=== PATIENT | female | born 1960 | race Caucasian/White ===

== ENCOUNTER 2016-06-12 18:33 | Emergency (ER) | payer OTHER ==
[~2016-06-12] VITALS: Ht 165.1 cm; Wt 90.7 kg
[~2016-06-12 18:33] MED LIST: NORCO 325 MG-51 TAB PO
--- NOTE | 2016-06-12 20:39 | ULTRASOUND REPORT ---
EXAMINATION: US TRIPLEX LOWER EXTREMITY, RIGHT CLINICAL INFORMATION: Right lower extremity veins. COMPARISON: None. TECHNIQUE: Color-flow triplex imaging with spectral analysis and compression Doppler were performed on the right lower extremity. FINDINGS: Respiratory variation, normal compression and augmented flow are noted throughout the lower extremity. The visualized common femoral vein, femoral vein, profunda femoral vein, popliteal vein and midcalf peroneal and posterior tibial venous segments show no evidence of deep venous thrombosis. There is no Arreola's cyst. IMPRESSION: Normal triplex scan without evidence of deep venous thrombosis involving the right lower extremity.
--- NOTE | 2016-06-12 20:52 | ED UPPER/LOWER EXTREMITY COMPL ---
History of Present Illness General Chief Complaint: Lower Extremity Problems Stated Complaint: R LEG PAIN AND SWELLING HX OF DVT Source: patient Exam Limitations: no limitations Vital Signs & Intake/Output Vital Signs & Intake/Output Vital Signs Date Time Temp Pulse Resp B/P Pulse O2 O2 Flow FiO2 Ox Delivery Rate 06/123 98.4 70 15 158/88 98 Room Air Room Air 06/12 1907 166/110 06/12 1905 97.1 77 20 183/123 97 Room Air ED Intake and Output 06/13 0000 06/12 1200 Intake Total 0 Output Total Balance 0 Intake, Oral 0 Patient 200 lb Weight Allergies Coded Allergies: Penicillins (RASH ALL OVER, EVEN INSIDE MOUTH 06/12/16) Reconcile Medications Aspirin (Aspirin*) 325 MG TABLET 1-4 TAB PO PRN BLOOD CLOT CONCERN (Reported) Meloxicam (Mobic) 15 MG TABLET 1 TAB PO DAILY PRN PAIN/INFLAMMATION Triage Note: RECEIVED 56 YO FEMALE C/O RIGHT INNER THIGH AREA PAIN X 2 WEEKS. PT REPORTS CHRONIC RIGHT THIGH SWELLING. PT REPORTS SHARP SHOOTING RIGHT LEG PAIN AND PAIN BEHIND RIGHT THIGH. Triage Nurses Notes Reviewed? yes HPI: Patient is a 56-year-old female presents complaining of right lower extremity pain and swelling. Patient reports that her right lower extremity swells chronically. For the past 2 weeks she has had increased pain in her right thigh. Pain varies between the right medial distal thigh and right medial mid thigh. Pain is a sharp pain is currently mild, has been severe at times. Patient has a history of DVT and is concerned that she developed a blood clot. Patient called her tool liaison office today and was referred to the emergency department for further evaluation. Patient has appointment with her vascular doctor on June 28. Patient denies fevers, trauma, decreased range of motion, weakness (MARTHA DOVE) Past History Travel History Traveled to [place] past 21 day No Medical History Any Pertinent Medical History? 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 No (MARTHA DOVE) Review of Systems Review of Systems Constitutional: Denies: chills, fever. EENTM: Reports: no symptoms. Respiratory: Denies: short of breath. Cardiovascular: Denies: chest pain. Gastrointestinal/Abdominal: Reports: no symptoms. Musculoskeletal: Reports: see HPI. Skin: Reports: no symptoms. Neurological/Psychological: Reports: no symptoms. Hematologic/Endocrine: Reports: no symptoms. Immunological: Reports: no symptoms. (MARTHA DOVE) Physical Exam Physical Exam General Appearance: well developed/nourished, alert, awake Head: atraumatic, normal appearance Eyes: Bilateral: normal appearance, PERRL, EOMI. Ears, Nose, Throat: normal pharynx, normal ENT inspection, hearing grossly normal Neck: normal inspection, supple, full range of motion Cardiovascular/Respiratory: normal breath sounds, normal peripheral pulses, regular rate/rhythm, no respiratory distress Peripheral Pulses: 2+ femoral (L), 2+ dorsalis pedis (R) Back: normal inspection, normal range of motion Leg Right: varicose veins to right thigh. Mild tenderness right medial thigh. No erythema, fluctuance or induration Knee Right: normal range of motion, normal inspection Foot Right: normal inspection, normal range of motion Neurologic/Tendon: normal sensation, normal motor functions, normal tendon functions Skin: intact, normal color, warm/dry (MARTHA DOVE) Progress Differential Diagnosis: arterial insufficiency, cellulitis, compartment syndrome , DVT, venous insufficiency, lymphedema Plan of Care: Results of ultrasound discussed with patient and her . Appears stable for follow up with her primary care provider in 10 days, and her vascular specialist on 06/28/16 Diagnostic Imaging: Viewed by Me: Ultrasound. Discussed w/RAD: Ultrasound. Radiology Impression: PATIENT: JC WOMACK PRESENT AGE: 56 PATIENT ACCOUNT NO: [id number] : 61 LOCATION: [facility] ORDERING PHYSICIAN: MARTHA MULLIGAN SERVICE DATE: 06/12/16 EXAM TYPE: US - US-UNILATERAL VENOUS DOPPLER EXAMINATION: US TRIPLEX LOWER EXTREMITY, RIGHT CLINICAL INFORMATION: Right lower extremity veins. COMPARISON: None. TECHNIQUE: Color-flow triplex imaging with spectral analysis and compression Doppler were performed on the right lower extremity. FINDINGS: Respiratory variation, normal compression and augmented flow are noted throughout the lower extremity. The visualized common femoral vein, femoral vein, profunda femoral vein, popliteal vein and midcalf peroneal and posterior tibial venous segments show no evidence of deep venous thrombosis. There is no Arreola's cyst. IMPRESSION : Normal triplex scan without evidence of deep venous thrombosis involving the right lower extremity. DICTATED BY: JACK BOO MD DATE/TIME DICTATED:2034 CAR DESIGNER:MIMI DATE/TIME TRANSCRIBED:06/12/162034 CONFIDENTIAL, DO NOT COPY WITHOUT APPROPRIATE AUTHORIZATION. <Electronically signed in Other Vendor System> SIGNED BY: JACK BOO MD 06/12/162038 (MARTHA DOVE) Departure Departure Time of Disposition: 2120 Disposition: HOME OR SELF CARE Condition: Stable Clinical Impression Primary Impression: Edema of right lower extremity Secondary Impressions: Pain of right lower extremity Referrals: ALISON FITZGERALD,DAYTON Torres (PCP/Family) Additional Instructions: Follow-up with your primary care provider on June 22 and your vascular doctor on June 28 as scheduled. Return to the emergency department if fevers, numbness, weakness, or worsening of symptoms. Departure Forms: Customer Survey General Discharge Information Prescriptions: Current Visit Scripts Meloxicam (Mobic) 1 TAB PO DAILY PRN PAIN/INFLAMMATION #10 TAB (MARTHA DOVE) PA/RADIO ANNOUNCER Co-Sign Statement Statement: ED Attending supervision documentation- [] I saw and evaluated the patient. I have also reviewed all the pertinent lab results and diagnostic results. I agree with the findings and the plan of care as documented in the PA's/RADIO ANNOUNCER's documentation. [X] I have reviewed the ED Record and agree with the PA's/RADIO ANNOUNCER's documentation. [] Additions or exceptions (if any) to the PAs/RADIO ANNOUNCER's note and plan are summarized below: [] (LLOYD NATHAN,JORDIN Lopez)
[2016-06-12] MEDS ORDERED: ASPIRIN325 M2 PO (21:04)
[2016-06-12] MEDS ORDERED: MOBIC15 M1 PO (21:22)
[2016-06-12 21:33] VITALS: BP 158/88
== END 2016-06-12 21:30 ==
LOC: ERH 18:33
DX: R60.0 Localized edema (principal); M79.604 Pain in right leg